=== PATIENT | male | born 1985 | race African-American/Black ===

== ENCOUNTER 2023-01-27 11:04 | Emergency (ER) | payer OTHER ==
[2023-01-27] MEDS ORDERED: ONDANSETRON ODT 4 MG TABLET TL STA (11:21)
--- NOTE | 2023-01-27 11:22 | ED Physician Documentation ---
History of Present Illness - Stated complaint Stated Complaint: NAUSEA - Chief complaint Chief Complaint: General - History obtained from History obtained from: Patient - Additonal information Additional information: This is a 37-year-old male with no significant past medical history who Presents today with nausea and vomiting which started this morning. He has vomited a couple of times, nonbloody and nonbilious. He has no associated fever or chills chest pain or difficulty breathing, abdominal pain, diarrhea or constipation, or urinary symptoms. He states that he has been taking care of his young child who had similar symptoms the past 3 days and is now improving. He works on the [employer] and was advised by his medical management trainer to be seen. Review of Systems Constitutional: reports: Reviewed and negative Nose: reports: Reviewed and negative Cardiac: reports: Reviewed and negative Respiratory: reports: Reviewed and negative GI: reports: Nausea, Vomiting. denies: Abdominal Pain, Abdominal Swelling, Constipation, Diarrhea, Hematemesis, Bloody / black stool : reports: Reviewed and negative Skin: reports: Reviewed and negative Musculoskeletal: reports: Reviewed and negative Neurologic: reports: Reviewed and negative PD PAST MEDICAL HISTORY - Present Medications Home Medications: Ambulatory Orders Medication Instructions Recorded Confirmed Ondansetron Odt [Zofran] 4 mg TL Q6H PRN #10 tablet 01/27/23 - Allergies Allergies/Adverse Reactions: Allergies Allergy/AdvReac Type Severity Reaction Status Date / Time No Known Drug Allergies Allergy Verified 01/27/23 11:13 PD ED PE NORMAL - Vitals Vital signs reviewed: Yes - General General: Alert and oriented X 3, No acute distress - HEENT HEENT: Atraumatic, Pharynx benign - Cardiac Cardiac: No murmur, No gallop, No rub, Strong equal pulses, Other (Mildly tachycardic) - Respiratory Respiratory: No respiratory distress, Clear bilaterally - Abdomen Abdomen: Normal bowel sounds, Soft, Non tender, Non distended, No organomegaly - Derm Derm: Normal color, Warm and dry, No rash - Neuro Neuro: Alert and oriented X 3, poultry picker 2-12 intact Motor: Obeys Commands Verbal: Oriented - Psych Psych: Normal mood, Normal affect Results - Vitals Vitals: Vital Signs - 24 hr 01/27/23 11:08 Temperature 35.9 C L Heart Rate 112 H Respiratory 18 Rate Blood Pressure 158/111 H O2 Saturation 97 Oxygen O2 Source Room air PD Medical Decision Making - ED course Complexity details: d/w patient ED course: 37-year-old male presented with nausea and vomiting after exposure to his son with similar symptoms for last few days. His abdomen is soft, he has active bowel tones and no tenderness. Low suspicion for appendicitis, cholecystitis, or other acute abdominal emergency. His symptoms are consistent with a viral enteritis and anticipate improvement in the next 1 to 2 days. I offered IV fluids and antiemetics however pt states he is tolerating PO ok and declined IV. I advised a bland diet, sipping on fluids which patient is able to do, and he was given Zofran here as well as 10 tablets of Zofran to take home. He was advised On measures to avoid spread to others and will be given a note for work for today and if needed tomorrow as well. Return precautions reviewed with the patient in detail And he was discharged home in stable condition. Departure - Departure Disposition: 01 Home, Self Care Clinical Impression: Nausea and vomiting in adult patient Condition: Good Instructions: ED Nausea Vomiting Prescriptions: Ondansetron Odt [Zofran] 4 mg TL Q6H PRN #10 tablet PRN Reason: Nausea / Vomiting Comments: Your symptoms should improve in the next 1-2 days. Try to take in oral fluids (pedialyte, gatorade, etc) and a bland diet. Avoid high fat or spicy foods until symptoms improve. Forms: Activity restrictions
[2023-01-27 11:54] VITALS: BP 140/112
== END 2023-01-27 12:39 | disposition home or self-care (01) ==
LOC: ED 11:04
DX: R11.2 Nausea with vomiting, unspecified (principal)
CPT/HCPCS: 99282; 99283; Q0162